=== PATIENT | male | born 1975 | race African-American/Black ===

== ENCOUNTER 2025-01-28 11:30 | Emergency (ER) | payer OTHER ==
[~2025-01-28] VITALS: Ht 180.3 cm; Wt 172.0 kg
[2025-01-28 11:36] VITALS: O2SAT 99
[2025-01-28 11:46] VITALS: BP 143/87; PULSE 86; RESP 14; TEMP 36.7; O2SAT 97
[2025-01-28 12:48] LABS: BASOPHILS % 0.5 % (0.0-2.0); HEMATOCRIT. 41.6 % (42.0-52.0); HEMOGLOBIN. 13.4 g/dL (14.0-18.0); LYMPHOCYTES % 38.6 % (20.0-50.0); MEAN CORPUSCULAR HEMOGLOBIN 29.8 pg (28.0-32.0); MEAN CORPUSCULAR HGB CONC 32.3 g/dL (31.0-37.0); MEAN CORPUSCULAR VOLUME 92.4 fL (80.0-94.0); MEAN PLATELET VOLUME 8.5 fl (7.4-10.4); MONOCYTES % 6.6 % (2.0-8.0); NEUTROPHILS % 52.3 % (40.0-76.0); PLATELET 190 x1000/uL (130-400); RED CELL DISTRIBUTION WIDTH 14.7 % (11.6-14.6); WHITE BLOOD COUNT 6.4 x1000/uL (4.5-11.0)
[2025-01-28 13:06] LABS: CHLORIDE 107 mEq/L (98-107); POTASSIUM 3.8 mEq/L (3.5-5.1); SODIUM 140 mEq/L (136-145)
[2025-01-28 13:07] LABS: CALCIUM 9.4 mg/dL (8.7-10.4); CARBON DIOXIDE 24 mEq/L (21-32)
[2025-01-28 13:12] LABS: CREATININE 0.9 mg/dL (0.6-1.3); GLUCOSE 102 mg/dL (70-105); UREA NITROGEN BLOOD 11 mg/dL (9-23)
[2025-01-28] MEDS ORDERED: FURO-151 MT (13:54)
== END 2025-01-28 14:06 | disposition home or self-care (01) ==
LOC: ER 11:30
DX: R60.0 Localized edema (principal); E11.9 Type 2 diabetes mellitus without complications; E78.00 Pure hypercholesterolemia, unspecified; I10 Essential (primary) hypertension; F12.90 Cannabis use, unspecified, uncomplicated; Z79.899 Other long term (current) drug therapy
CPT/HCPCS: 36415; 71045; 80048; 83880; 85025; 99284